=== PATIENT | female | born 1955 | race Caucasian/White ===

== ENCOUNTER 2017-09-18 14:53 | Emergency (ER) | payer MEDICAID ==
[~2017-09-18] VITALS: Ht 162.6 cm; Wt 62.0 kg
[2017-09-18 15:02] VITALS: BP 198/110; PULSE 75; RESP 17; TEMP 98.5; O2SAT 99
[2017-09-18 15:41] VITALS: BP 182/95; PULSE 82; RESP 20
[2017-09-18] MEDS ORDERED: TETANUS/DIPHTHERIA TOXOID ADULT 0.5 ML VIAL IM ONE (16:00)
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
[2017-09-18] MEDS ORDERED: ROBA750T PO ×2 (17:00→17:28)
== END 2017-09-18 17:34 | disposition home or self-care (01) ==
LOC: NEPK 14:53
DX: S62.627A Displaced fracture of middle phalanx of left little finger, initial encounter for closed fracture (principal); S09.90XA Unspecified injury of head, initial encounter; S16.1XXA Strain of muscle, fascia and tendon at neck level, initial encounter; V19.9XXA Pedal cyclist (driver) (passenger) injured in unspecified traffic accident, initial encounter; Y93.55 Activity, bike riding; Z23 Encounter for immunization
CPT/HCPCS: 29130; 70450; 72125; 73140; 90471; 90714